=== PATIENT | female | born 1960 | race Caucasian/White ===

== ENCOUNTER 2020-08-12 21:41 | Emergency (ER) | payer SELFPAY ==
[2020-08-12 21:47] VITALS: BP 140/84; PULSE 74; RESP 18; TEMP 36.3; O2SAT 98; BMI 28.3
--- NOTE | 2020-08-12 21:52 | XR_ITS ---
WS: [id number] XR elbow RT min 3V* [id number] REASON FOR EXAM: fall FINDINGS: There is soft tissue swelling about the elbow with displacement of the anterior and probably the post erior fat pad indicating joint effusion. There is deformity and vertical lucency involving the articular and subarticular portion of the radia l head. No significant angulation or displacement. No focal soft tissue abnormality. Plate and screw fixation of distal most radial fracture. XR/XR elbow RT min 3V* [id number] IMPRESSION: Radial head fracture as above.
--- NOTE | 2020-08-12 21:55 | ED_ITS ---
HPI - Extremity Problem General: Chief complaint: Extremity Injury, Upper Stated complaint: Rt arm pain Time Seen by Provider: 08/12/20 21:52 History of Present Illness: HPI Narrative: Patient is a 59-year-old female comes to the ED with right arm pain after having a fall. Fall occurred just prior to arrival. Patient says she fell at home and landed on right forearm and elbow. She says her right elbow has gotten swollen and she now has pain whenever she bends her right elbow. She also says the pain seems to be in the middle of her forearm as well. Pain rated a 10 out of 10. Associated symptoms: Deny chest pain, fever(s) or rash Review of Systems Const: Denies: fever(s), chills or fatigue Eyes: Denies: change in vision or eye discomfort ENMT: Denies: throat pain, odynophagia, nasal discharge or nasal congestion Card: Denies: chest pain, palpitations, edema, swelling of feet/ankles, dyspnea on exertion or orthopnea Resp: Denies: dyspnea, productive cough or non-productive cough GI: Denies: abdominal pain, nausea, vomiting, diarrhea, constipation or hematochezia : Denies: flank pain, dysuria or hematuria Musc: Reports: extremity pain (Right forearm and right elbow.); Denies: neck pain, back pain or extremity swelling Skin/Breast: Denies: rash or new lesions Neuro: Denies: headache(s), numbness in extremities or weakness in extremities Physical Exam Const: COMMON NORMALS: no acute distress, patient oriented x3, healthy appearing and alert GENERAL APPEARANCE: cooperative and comfortable HENMT: COMMON NORMALS: normocephalic HEAD & SCALP: normocephalic MOUTH: Normal oral and palatal mucosa present THROAT: posterior oropharynx normal and uvula midline Neck/C-Spine: COMMON NORMALS: supple GENERAL: Yes normal visual inspection Resp: COMMON NORMALS: normal respiratory effort, No retractions, No use of accessory muscles and clear to auscultation bilaterally AUSCULTATION: clear to auscultation bilaterally Cardio: COMMON NORMALS: regular rate, regular rhythm, S1 normal heart sound present, S2 normal heart sound present, No gallops present (Cardio), No clicks present (Cardio), No murmurs present (Cardio) and Peripheral pulses 2+ throughout RATE: regular rate RHYTHM: regular rhythm HEART SOUNDS: S1 normal heart sound present and S2 normal heart sound present PERIPHERAL PULSES: Peripheral pulses 2+ throughout GI: COMMON NORMALS: Normal to inspection, nondistended, normoactive bowel sounds present, Soft to palpation, non-tender and no masses PALPATION: Yes Soft to palpation : COMMON NORMALS: Yes no CVA tenderness BLADDER/KIDNEY EXAM: Yes no CVA tenderness Back/Pelvis: COMMON NORMALS: no CVA tenderness Extremity: NARRATIVE EXTREMITY EXAM: Right arm?elbow has some edema and ecchymosis setting then. Mild tenderness upon palpation especially on the radial aspect of elbow joint. No visible deformity seen. Limited range of motion due to pain. Radial pulse 2+ and neurovascular intact distally. GENERAL: Yes normal exam except as noted Neuro: COMMON NORMALS: patient oriented x3 SENSORIUM/ORIENTATION: Yes alert Skin: GENERAL SKIN EXAM: dry skin Course Vital Signs: Vital signs: Vital Signs Temperature 97.9 F 08/12/20 23:38 Pulse Rate 66 08/12/20 23:38 Respiratory Rate 16 08/12/20 23:38 Blood Pressure 112/84 08/12/20 23:38 Pulse Oximetry 97 08/12/20 23:38 MDM - Extremity (Nontraumatic) MDM Narrative: Medical decision making narrative: Patient is a [id number] female comes to the ED with right elbow pain after fall. Patient has swelling in her right elbow and its tender to the touch. Radial pulse 2+ and neurovascular intact distally. X-ray right elbow shows a nondisplaced radial head fracture. Patient was put in a long-arm splint and sling. Order was placed with case management for patient be referred to Ortho. Sent home with a prescription for Vesuvius 5/325mg #8 tablets. Return ED precautions given. Patient told to follow-up with Ortho at scheduled appointmen t. patient understood and agreed with plan. Imaging Data^: Xray Ortho: Attestation: I personally reviewed and interpreted this imaging study as follows: My impression: Right elbow x-ray shows nondisplaced radial head fracture. Discharge Plan Discharge Patient Disposition: Home Clinical Impression: Closed fracture of radial head Qualifiers: Encounter type: initial encounter Fracture alignment: nondisplaced Laterality: right Qualified Code(s): S52.124A - Nondisplaced fracture of head of right radius, initial encounter for closed fracture Condition: Stable Discharge Orders: Discharge Order (Routine); Ordered 08/12/20 Ordered By: Mayco Garcia Discharge Diet: Regular Discharge Activity: Limit activity as instructed Patient Instructions: Elbow Fracture in Adults (ED) Coding Level of Care Code ED [employer] for [employer] Exam Comprehensive
--- NOTE | 2020-08-12 22:00 | XR_ITS ---
WS: [id number] XR forearm RT 2V [id number] REASON FOR EXAM: fall FINDINGS: Radial head fracture as described on the examination of the right elbow. Plate and screw fixation of distal most radial fracture which appears healed. No acute abnormality in this region. XR/XR forearm RT 2V [id number] IMPRESSION: Radial head fracture. No other acute abnormality.
[2020-08-12] MEDS: HYDROcodone-acetaminophen 7.5-325 mg Tablet 1 TAB PO (22:11)
[2020-08-12 22:26] VITALS: PULSE 66; PULSE 70; RESP 16; O2SAT 96
[2020-08-12] MEDS: HYDROcodone-acetaminophen 7.5-325 mg Tablet 2 TAB PO (23:34)
[2020-08-12 23:38] VITALS: BP 112/84; PULSE 66; RESP 16; TEMP 36.6; O2SAT 97
--- NOTE | 2020-08-13 10:57 | DCPLANNER ---
consulting practice manager had message to schedule a follow up appointment for patient with the ortho clinic. consulting practice manager called the ortho clinic, spoke with Marla, gave clinic patients information. consulting practice manager was told that patients information would be printed and reviewed. Clinic will call patient with appointment information.
--- NOTE | 2020-08-15 10:24 | DCPLANNER ---
Patient had a follow up appointment scheduled for 08.14.20 with ortho - patient did attend appointment.
== END 2020-08-12 23:44 | disposition home or self-care (01) ==
PROVIDERS: Emergency Provider Physician Assistant
DX: S52.124A Nondisplaced fracture of head of right radius, initial encounter for closed fracture (principal); W19.XXXA Unspecified fall, initial encounter
CPT/HCPCS: 12345; 29105; 73080; 73090; 99281; 99283

== ENCOUNTER 2020-08-22 10:41 | Outpatient (CLI) | payer SELFPAY ==
--- NOTE | 2020-08-22 10:49 | CT_ITS ---
WS: [id number] CT RIGHT ELBOW. 3-D reformations. HISTORY: S52.124A - Nondisplaced fracture of head of right radius, initial encounter for closed fract ure Technique: All CT scans at [facility] use at least one of these dose optimization techniq ues: automated exposure control; mA and/or kV adjustment per patient size (includes targeted exams wh ere dose is matched to clinical indication); or iterative reconstruction. DLP: 1015.52 mGycm COMPARISON: RIGHT elbow radiograph 08/12/2020 Nondisplaced slightly comminuted fracture involving the radial head and neck. Fracture does extend to the joint space but there is no displacement. No fragments within the joint space. The olecranon is intact. Humeral condyles are also intact. The joint effusion is poorly visualized on this examination due to the quality examination but there is soft tissue edema surrounding the elbow. CT/CT elbow RT wo con* [id number] IMPRESSION: Nondisplaced, minimally comminuted fracture involving the RIGHT radial neck and head.
== END 2020-08-22 10:42 | disposition home or self-care (01) ==
LOC: RADWPI 10:47
PROVIDERS: Visit Provider Orthopaedic Surgery
DX: S52.124A Nondisplaced fracture of head of right radius, initial encounter for closed fracture (principal); X58.XXXA Exposure to other specified factors, initial encounter
CPT/HCPCS: 73200

== ENCOUNTER → 2020-09-18 09:03 | Outpatient (BNVA) | payer SELFPAY | PROVIDERS: Visit Provider Orthopaedic Surgery | DX: Z47.89 Encounter for other orthopedic aftercare (principal); S42.409D Unspecified fracture of lower end of unspecified humerus, subsequent encounter for fracture with routine healing; X58.XXXD Exposure to other specified factors, subsequent encounter | CPT/HCPCS: 73080 ==

== ENCOUNTER → 2020-11-20 09:13 | Outpatient (BNVA) | payer SELFPAY | PROVIDERS: Visit Provider Orthopaedic Surgery | DX: S42.409A Unspecified fracture of lower end of unspecified humerus, initial encounter for closed fracture (principal); S52.123A Displaced fracture of head of unspecified radius, initial encounter for closed fracture; X58.XXXA Exposure to other specified factors, initial encounter | CPT/HCPCS: 73080 ==